=== PATIENT | female | born 1945 ===

== ENCOUNTER 2022-09-25 11:14 | Inpatient (IN) | payer OTHER ==
[~2022-09-25] VITALS: Ht 160 cm; Wt 67.1 kg
[2022-09-26] MEDS ORDERED: TIROSINT88 MCG PO (10:43)
[2022-09-26] MEDS ORDERED: FOSAMAX70 MG PO (10:44)
[2022-10-07] MEDS ORDERED: INTESTINEX680 M1 PO (10:24)
[2022-10-07] MEDS ORDERED: TRAM1TAB98 PO (10:24)
[2022-10-07] MEDS ORDERED: PEPCID AC20 MG PO (10:24)
== END 2022-10-07 12:00 | disposition home or self-care (01) | DRG 330 ==
LOC: SURG 10-03 07:00 → O/R 10-03 09:22 → SURG 10-03 10:30 → SURH 10-03 17:08
PROVIDERS: ADMIT Surgery; ATTEND Surgery
PROC: 0DBP4ZZ Excision of Rectum, Percutaneous Endoscopic Approach (ICD-10-PCS; 2022-10-03)
PROC: 0TQB4ZZ Repair Bladder, Percutaneous Endoscopic Approach (ICD-10-PCS; 2022-10-03)
PROC: 0DQ84ZZ Repair Small Intestine, Percutaneous Endoscopic Approach (ICD-10-PCS; 2022-10-03)
PROC: 0DJD8ZZ Inspection of Lower Intestinal Tract, Via Natural or Artificial Opening Endoscopic (ICD-10-PCS; 2022-10-03)
PROC: 0DTN4ZZ Resection of Sigmoid Colon, Percutaneous Endoscopic Approach (ICD-10-PCS; principal; 2022-10-03 07:00)
DX: K57.20 Diverticulitis of large intestine with perforation and abscess without bleeding (principal); N82.4 Other female intestinal-genital tract fistulae; R10.32 Left lower quadrant pain; Z20.822 Contact with and (suspected) exposure to COVID-19

== ENCOUNTER 2024-11-26 19:46 | Emergency (ER) | payer OTHER ==
[~2024-11-26] VITALS: Ht 165.1 cm; Wt 74.8 kg
[~2024-11-26 19:46] MED LIST: FOSAMAX70 MG PO; INTESTINEX680 M1 PO; PEPCID AC20 MG PO; TIROSINT88 MCG PO; TRAM1TAB98 PO
[2024-11-26] MEDS ORDERED: CEFTRIAXONE SODIUM 1,000 MG VIAL IM ONE (20:15)
[2024-11-26] MEDS ORDERED: LIDOCAINE HCL 1% 10ML VIAL ONE (20:22)
[2024-11-26] MEDS ORDERED: PEPCID AC20 MG PO (21:34)
[2024-11-26] MEDS ORDERED: CEFUROXIME500 MG PO (21:34)
== END 2024-11-26 21:38 | disposition home or self-care (01) ==
LOC: ER 19:46
DX: S01.81XA Laceration without foreign body of other part of head, initial encounter (principal); W19.XXXA Unspecified fall, initial encounter; Y93.89 Activity, other specified; Y92.89 Other specified places as the place of occurrence of the external cause; Y99.8 Other external cause status; M25.561 Pain in right knee; E03.8 Other specified hypothyroidism
CPT/HCPCS: 12013; 70450; 70486; 72125; 72170; 73560; 96372; 99284; J0696